=== PATIENT | female | born 1985 | race Caucasian/White ===

== ENCOUNTER 2016-09-11 00:12 | Emergency (ER) | payer OTHER ==
[~2016-09-11] VITALS: Ht 154.9 cm; Wt 73.3 kg
[2016-09-11 00:16] VITALS: BP 129/90
--- NOTE | 2016-09-11 00:25 | NUR ---
PATIENT AMBULATED TO ER BED 5.
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
--- NOTE | 2016-09-11 00:44 | NUR ---
Patient being evaluated by physician at bedside.
[2016-09-11] MEDS ORDERED: LORazepam 1 MG TAB PO ONE (00:50)
[2016-09-11 01:36] VITALS: BP 123/80
--- NOTE | 2016-09-11 01:36 | NUR ---
Patient discharged with v/s stable. Written and verbal after care instructions given and explained. Patient alert, oriented and verbalized understanding of instructions. Ambulatory with to car. All questions addressed prior to discharge. ID band removed. Patient advised to follow up with PMD OR RETURN TO ER IF CONDITION WORSENS. Opportunity to ask questions provided and answered.NO S/S OF DISTRESS NOTED ON D/C.
== END 2016-09-11 01:36 | disposition home or self-care (01) ==
LOC: MED 00:12
DX: R20.2 Paresthesia of skin (principal)
CPT/HCPCS: 99283

== ENCOUNTER 2017-01-15 21:56 | Inpatient (IN) | payer OTHER ==
[~2017-01-15] VITALS: Ht 162.6 cm; Wt 72.6 kg
[2017-01-15 22:03] VITALS: BP 132/79
--- NOTE | 2017-01-15 22:18 | NUR ---
TO ER BED 5
[2017-01-15] MEDS ORDERED: NACL 0.9% 1,000 ML IV ONE (22:20)
--- NOTE | 2017-01-15 22:30 | NUR ---
Patient being evaluated by physician at bedside.
--- NOTE | 2017-01-15 22:47 | NUR ---
31Y/F PATIENT PRESENTS TO ED WITH C/O EPIGSARIC PAIN X 1 DAY . PT STATES EPIGASTRIC PAIN WITH N/V. NO DIARRHEA, NO MEDICAL HX.; SKIN IS PINK/WARM/DRY; AAOX4 WITH EVEN AND STEADY GAIT; LUNGS CLEAR BL; HR EVEN AND REGULAR; PT DENIES ANY FEVER, CP, SOB, OR COUGH AT THIS TIME; PATIENT STATES PAIN OF 6/10 AT THIS TIME; VSS; PATIENT POSITIONED FOR COMFORT; HOB ELEVATED; BEDRAILS UP X2; BED DOWN. ER MD MADE AWARE OF PT STATUS.
[2017-01-15 22:52] LABS: APPEARANCE,URINE CLEAR (CLEAR); BILIRUBIN,URINE NEGATIVE (NEGATIVE); BLOOD, URINE NEGATIVE (NEGATIVE); COLOR,URINE YELLOW (YELLOW); LEUKOCYTE ESTERASE ,URINE NEGATIVE (NEGATIVE); NITRITE, URINE NEGATIVE (NEGATIVE); PH,URINE 6.5 (5.0-9.0); PROTEIN,URINE NEGATIVE (NEGATIVE); UGLUCOSE NEGATIVE (NEGATIVE); UROBILINOGEN,URINE 0.2 EU/dL (0.2 - 1)
[2017-01-15 22:53] LABS: HEMATOCRIT 39.3 % (36-48); HEMOGLOBIN 12.7 g/dL (12.0-16.0); MEAN CORPUSCULAR HEMOGLOBIN 25 pg (27-31); MEAN CORPUSCULAR HGB CONC 32 g/dL (33-37); MEAN CORPUSCULAR VOLUME 78 fL (80-94); PLATELET COUNT (AUTO) 317 K/uL (140-450); RED BLOOD CELL COUNT(AUTO) 5.02 MIL/uL (4.20-5.40); WHITE BLOOD COUNT (AUTO) 15.3 K/uL (4.8-10.8)
--- NOTE | 2017-01-15 23:00 | NUR ---
Patient appears to be resting comfortably in bed. Vital Signs within normal limits. Respirations even and unlabored.
[2017-01-15 23:03] LABS: ALBUMIN 3.8 g/dL (3.4-5.0); ANION GAP 15.2 (8-16); CARBON DIOXIDE 24.3 mmol/L (21-32); CREATININE 0.6 mg/dL (0.6-1.3); POTASSIUM 3.5 mmol/L (3.5-5.1); TOTAL BILIRUBIN 0.8 mg/dL (0.0-1.0); TOTAL PROTEIN, SERUM 7.8 g/dL (6.4-8.2)
[2017-01-15 23:10] LABS: BAND % (MANUAL) 5 % (0-8); LYMPHOCYTES % (MANUAL) 16 % (20-46); MONOCYTES % (MANUAL) 0 % (5-12); NEUTROPHILS % (MANUAL) 79 (43-65)
[2017-01-15 23:17] LABS: BACTERIA,URINE FEW /HPF (None Seen); RBC,URINE 0-5 (RARE) /HPF (0-5); SQUAMOUS EPITHELIAL CELL,UR 0-3 (FEW) /LPF (0-3 (FEW)); WBC,URINE 0-5 (RARE) /HPF (0-5)
[2017-01-16] VITALS (7 sets, daily range): BP systolic 97–112; BP diastolic 61–70
[2017-01-16] MEDS ORDERED: HYDROmorphone 1 MG/ML AMP IVP ONE (00:30)
[2017-01-16] MEDS ORDERED: ONDANSETRON 4 MG/2 ML VIAL IVP ONE (00:30)
[2017-01-16] MEDS ORDERED: MORPHINE SULFATE 4 MG/ML SYR IVP PRN (00:40)
[2017-01-16] MEDS ORDERED: MORPHINE SULFATE 2 MG/ML SYR IVP PRN (00:40)
[2017-01-16] MEDS ORDERED: ONDANSETRON 4 MG/2 ML VIAL IVP PRN ×2 (00:40→18:00)
--- NOTE | 2017-01-16 01:05 | NUR ---
Patient will be admitted to care of . Admited to M/S. Will go to [id number]. Belongings list completed. Report to ISELA SOLARES.
[2017-01-16] MEDS: DEXT 5% /NACL 0.9% 1,000 ML IV SCH ×2 (01:30→12:48)
--- NOTE | 2017-01-16 02:15 | NUR ---
ADMITTED 31 Y.O.F. FROM ER.PLACED ON BED ORIENTED TO ROOM.CALL SYSTEM EXPLAINED AND IN REACH.PT IS AWAKE,ALERT AND ORIENTED.RESP.IS UNLABORED IN RA.SL PATENT IN LT.AC W/#18 G W/O REDNESS OR EDEMA AT SITE.PLAN OF CARE DISCUSSED W/ PT. SHE VERBALIZED UNDERSTANDING.DENIED PAIN AT TIME OF ADMISSION.WILL CONTINUE MONITORING.
[2017-01-16] MEDS ORDERED: PIPERACILLIN/TAZOBACTAM 3.375 GM VIAL IV ONE (04:46)
[2017-01-16] MEDS ORDERED: PIPERACILLIN/TAZOBACTAM 3.375 GM in DEXTROSE 5% 50 ML IV SCH (05:00)
[2017-01-16 06:25] LABS: PARTIAL THROMBOPLASTIN TIME 25.8 secs (22-35.6); PROTHROMBIN TIME 10.1 secs (10.8-13.4)
--- NOTE | 2017-01-16 06:43 | NUR ---
SLEPT WELL.IVF OF D5,NS AT 100ML/H INFUSING WELL.NO C/O PAIN SINCE ADMISSION.SHE IS NPO.PER ER AWARE OF CONSULT. ER TALKED W/HIM.
--- NOTE | 2017-01-16 07:29 | NUR ---
REPORT GIVEN TO AM NURSE.PT'S CONDITION IS STABLE.PT REFUSED SEQUENTIAL.
--- NOTE | 2017-01-16 07:29 | NUR ---
ASSUMEDM CONTINUITY OF CARE. NO SIGNS AND SYMTPOMSO F ACUTE DISTRESS NOTED. INITIAL ASSESSMENT DONE. KEEP COMFORTABLE ON BED. EXPLAINED DIAGNOSIS, PLAN OF CARE, PAIN MANAGEMENT TEACHING, NOTHING BY MOUTH, USE OF CALL LIGHT/BED/TV/BATHROOM. VERBALIZED UNDERSTANDING. CALL LIGHT WITHIN REACH.
--- NOTE | 2017-01-16 08:00 | NUR ---
Patient's Plan of Care was discussed and reviewed with THIRD SHIFT LIEUTENANT: KRYS OG
--- NOTE | 2017-01-16 08:50 | NUR ---
DR. RÍOS CAME, SEEN PT.. AND CHECKED PT. CHART.
--- NOTE | 2017-01-16 09:02 | NUR ---
PATIENT HAS BEEN SCREENED AND CATEGORIZED MODERATE NUTRITION RISK. PATIENT WILL BE SEEN WITHIN 3-5 DAYS OF ADMISSION. 01/18/17-01/20/[address]
--- NOTE | 2017-01-16 09:05 | NUR ---
DR. HAUSER CALLED AND SAID THAT DR. RÍOS CALLED HIM REGARDING PT.. GOT T.O. FROM DR. HAUSER OF OBTAIN CONSENT FOR LAPAROSCOPIC POSSIBLE OPEN APPENDECTOMY FOR TODAY 01/16/17, AND CXR. READ BACK AND VERIFIED. INFORMED CHARGE NURSE MARIELENA ALVAREZ -ISELA.
--- NOTE | 2017-01-16 09:40 | NUR ---
RIVER RAFTING GUIDE CAME FOR PT. CXR. PT. RESTING ON BED.
[2017-01-16 09:48] LABS: ANION GAP 11.1 (8-16); CARBON DIOXIDE 26.9 mmol/L (21-32); CREATININE 0.7 mg/dL (0.6-1.3)
[2017-01-16] MEDS: PIPER/TAZO 3.375GM/D5W PREMIX 50 ML IV SCH ×2 (12:24→20:39)
[2017-01-16 15:26] LABS: BASOPHILS # (AUTO) 0.2 K/uL (0.00-0.22); BASOPHILS % (AUTO) 1.8 % (0.0-2.0); EOSINOPHILS # (AUTO) 0.1 K/uL (0-0.4); EOSINOPHILS % (AUTO) 1.4 % (0.0-4.0); HEMATOCRIT 35.4 % (36-48); HEMOGLOBIN 10.9 g/dL (12.0-16.0); LYMPHOCYTES # (AUTO) 1.9 K/uL (2.5-16.5); LYMPHOCYTES % (AUTO) 20.4 % (20.5-51.1); MEAN CORPUSCULAR HEMOGLOBIN 24 pg (27-31); MEAN CORPUSCULAR HGB CONC 31 g/dL (33-37); MEAN CORPUSCULAR VOLUME 78 fL (80-94); MONOCYTES # (AUTO) 0.4 K/uL (0.8-1.0); MONOCYTES % (AUTO) 3.9 % (1.7-9.3); NEUTROPHILS # (AUTO) 6.8 K/uL (1.8-7.7); NEUTROPHILS % (AUTO) 72.5 % (42.2-75.2); PLATELET COUNT (AUTO) 294 K/uL (140-450); RED BLOOD CELL COUNT(AUTO) 4.54 MIL/uL (4.20-5.40); RED CELL DISTRIBUTION WIDTH 14.2 % (11.6-13.7); WHITE BLOOD COUNT (AUTO) 9.4 K/uL (4.8-10.8)
--- NOTE | 2017-01-16 16:20 | NUR ---
CALLED DR. HAUSER AND VERIFIED ORDER FOR LAPAROSCOPIC POSSIBLE OPEN APPENDECTOMY. DR. HAUSER PHONE WANTED TO TALK TO STIPPLER FOR OR SCHEDULING. INFORMED CHARGE NURSE MARIELENA MIRELES.
[2017-01-16] MEDS ORDERED: ACETAMINOPHEN 325 MG TAB PO PRN (16:40)
[2017-01-16] MEDS ORDERED: PHENYLEPHRINE 10 MG/ML VIAL ONE (17:20)
[2017-01-16] MEDS ORDERED: DEXAMETHASONE 4 MG/ML VIAL ONE (17:20)
[2017-01-16] MEDS ORDERED: PROPOFOL 200 MG/20 ML VIAL IV ONE (17:20)
[2017-01-16] MEDS ORDERED: LIDOCAINE 2% 100 MG/5 ML SYR IVP ONE (17:20)
[2017-01-16] MEDS ORDERED: ONDANSETRON 4 MG/2 ML VIAL ONE (17:20)
[2017-01-16] MEDS ORDERED: ROCURONIUM 50 MG/5 ML VIAL IV ONE (17:20)
[2017-01-16] MEDS ORDERED: SUCCINYLCHOLINE CHLORIDE 200 MG/10 ML VIAL IVP ONE (17:20)
[2017-01-16] MEDS ORDERED: GLYCOPYRROLATE 0.2 MG/ML VIAL ONE (17:20)
[2017-01-16] MEDS ORDERED: DESFLURANE 240 ML BTL INH ONE (17:20)
--- NOTE | 2017-01-16 17:25 | NUR ---
DR. HAUSER CAME, SPOKE TO PT. AND DISCUSSED ABOUT PROCEDURE. FAMILY MEMBERS ON BEDSIDE.
--- NOTE | 2017-01-16 17:30 | NUR ---
WENT TO OR VIA GURNEY. IN STABLE CONDITION.
[2017-01-16] MEDS ORDERED: BUPIVACAINE-MPF 0.25% 30 ML VIAL INJ ONE (17:42)
[2017-01-16] MEDS ORDERED: MIDAZOLAM 2 MG/2 ML VIAL ONE (17:43)
[2017-01-16] MEDS ORDERED: fentaNYL 0.05 MG/ML VIAL ONE (17:44)
[2017-01-16] MEDS ORDERED: BLOOD GLUCOSE MONITORING 1 DEV DEV FS SCH (18:00)
[2017-01-16] MEDS ORDERED: HYDROmorphone 1 MG/ML AMP IVP PRN (18:00)
--- NOTE | 2017-01-16 19:12 | NUR ---
REPORT GIVEN TO KATELYN MIRELES. PT. IN OR FOR PROCEDURE.
--- NOTE | 2017-01-16 19:20 | NUR ---
RECEIVED REPORTS FROM DAY RN. PATIENT IS CURRENTLY IN THE O.R.
[2017-01-16] MEDS: HYDROmorphone PFS 2 MG/ML SYR ONE ×2 (19:34→19:44)
[2017-01-16] MEDS ORDERED: INSULIN HUMAN REGULAR 100 UNITS/ML 10 ML VIAL SUBQ SCH (19:35)
--- NOTE | 2017-01-16 20:05 | NUR ---
RECEIVED REPORTS FROM O.R NURSE. PATIENT RESTING IN BED, VITAL SIGN 97.8 107/70, 78, 93%, 17, PATIENT DENIES PAIN AT THIS TIME. NOTED SURGICAL SITES WERE TAPED, DRY AND INTACT. CALL LIGHT WITHIN REACH, SAFETY MEASURE ENSURED, WILL CONTINUE TO MONITOR.
[2017-01-16] MEDS ORDERED: NACL 0.9% 1,000 ML IV SCH (21:25)
[2017-01-16] MEDS: INSULIN LISPRO SLIDING SCALE 100 UNITS/ML VIAL SUBQ PRN (22:07)
--- NOTE | 2017-01-16 23:05 | NUR ---
PATIENT SLEEPING IN BED, NO S/S OF ACUTE DISTRESS NOTED, RESPIRATION EVEN AND UNLABORED, VITAL SIGNS TAKEN, READ 98.4, 109/65, 80, 17, 97%. DENIES PAIN AT THIS TIME. CALL LIGHT WITHIN REACH, SAFETY MEASURE ENSURED, WILL CONTINUE TO MONITOR.
[2017-01-17] VITALS: BP 112/70
--- NOTE | 2017-01-17 00:40 | NUR ---
ASSISTED PATIENT TO THE BATHROOM. PATIENT VOID X1, AND STATED," YES, I FARTED."
--- NOTE | 2017-01-17 02:58 | NUR ---
ASSISTED PATIENT TO THE RESTROOM. PATIENT VOID X1.
[2017-01-17] MEDS: PIPER/TAZO 3.375GM/D5W PREMIX 50 ML IV SCH ×2 (04:54→12:35)
--- NOTE | 2017-01-17 04:58 | NUR ---
AM ZOSYN STARTED, PATIENT TOLERATED WELL. NO S/S OF ACUTE DISTRESS NOTED, WILL CONTINUE TO MONITOR.
[2017-01-17 06:01] LABS: BASOPHILS % (AUTO) 0.4 % (0.0-2.0); EOSINOPHILS # (AUTO) 0.1 K/uL (0-0.4); EOSINOPHILS % (AUTO) 1.2 % (0.0-4.0); LYMPHOCYTES # (AUTO) 1.2 K/uL (2.5-16.5); LYMPHOCYTES % (AUTO) 11.5 % (20.5-51.1); MEAN CORPUSCULAR HEMOGLOBIN 25 pg (27-31); MEAN CORPUSCULAR HGB CONC 32 g/dL (33-37); MEAN CORPUSCULAR VOLUME 78 fL (80-94); MONOCYTES # (AUTO) 0.2 K/uL (0.8-1.0); MONOCYTES % (AUTO) 1.9 % (1.7-9.3); NEUTROPHILS # (AUTO) 8.7 K/uL (1.8-7.7); PLATELET COUNT (AUTO) 293 K/uL (140-450); RED BLOOD CELL COUNT(AUTO) 4.39 MIL/uL (4.20-5.40); WHITE BLOOD COUNT (AUTO) 10.2 K/uL (4.8-10.8)
[2017-01-17 06:38] LABS: ANION GAP 13.8 (8-16); CALCIUM 8.5 mg/dL (8.5-10.1); CARBON DIOXIDE 24.8 mmol/L (21-32); CREATININE 0.6 mg/dL (0.6-1.3); POTASSIUM 4.6 mmol/L (3.5-5.1)
[2017-01-17 06:49] LABS: MAGNESIUM 1.8 mg/dL (1.8-2.4); PHOSPHORUS 3.8 mg/dL (2.5-4.9)
[2017-01-17] MEDS: BLOOD GLUCOSE MONITORING 1 DEV DEV FS SCH ×3 (07:07→16:43)
[2017-01-17] MEDS: INSULIN LISPRO SLIDING SCALE 100 UNITS/ML VIAL SUBQ PRN ×3 (07:07→16:46)
--- NOTE | 2017-01-17 07:20 | NUR ---
ASSUMED CONTINUITY OF CARE. NO SIGNS AND SYMPTOMS OF ACUTE DISTRESS NOTICED. INITIAL ASSESSMENT DONE. KEEP COMFORTABLE ON BED. EXPLAINED DIAGNOSIS, PLAN OF CARE, PAIN MANAGEMENT TEACHING, POST-OP CARE, USE OF CALL LIGHT/BED/TV/BATHROOM. VERBALIZED UNDERSTANDING. CALL LIGHT WITHIN REACH.
--- NOTE | 2017-01-17 07:20 | NUR ---
ENDORSED PLAN OF CARE TO DAY RN. PATIENT RESTING IN BED, NO S/S ACUTE DISTRESS NOTED, RESPIRATION EVEN AND UNLABORED.
[2017-01-17 08:00] VITALS: BP 104/59
--- NOTE | 2017-01-17 08:00 | NUR ---
Patient's Plan of Care was discussed and reviewed with REHAB AID: KRYS
--- NOTE | 2017-01-17 09:00 | NUR ---
DR. RÍOS CAME, CHECKED PT. CHART, AND SEEN PT.. PER DR. RÍOS, PT. CAN BE D/C LATER AT THIS AFTERNOON. INFORMED CHARGE NURSE MARIELENA ALVAREZ -ISELA.
[2017-01-17] MEDS ORDERED: DOCU-67 PO (09:30)
[2017-01-17] MEDS ORDERED: ACET-2863 PO (09:30)
--- NOTE | 2017-01-17 10:05 | NUR ---
AMBULATES ON HALLWAY WITHOUT ASSISTANCE. TOLERATED WELL. NO C/O PAIN.
[2017-01-17 12:00] VITALS: BP 110/68
--- NOTE | 2017-01-17 12:36 | NUR ---
WENT TO BATHROOM. TOLERATED WELL. NO C/O PAIN.
--- NOTE | 2017-01-17 15:00 | NUR ---
EXPLAINED ABOUT MD D/C ORDER, D/C INSTRUCTIONS AND TEACHING, DR. HAUSER FOLLOW-UP IN 1 WEEK, POST-OP TEACHING, PAIN MANAGEMENT TEACHING, DIET, INCISION CARE, MD D/C PRESCRIPTION LIST EDUCATION. VERBALIZED UNDERSTANDING.
[2017-01-17 16:00] VITALS: BP 106/56
--- NOTE | 2017-01-17 18:10 | NUR ---
D/C VIA WHEELCHAIR WITH ASSISTANCE. FROM CLARENCE BERRIOS, ACCOMPANIED BY PT. . PT. AWAKE, ALERT, AND ORIENTED X4. SPEECH CLEAR. NO C/O PAIN. NO SOB, NOTED. IN STABLE CONDITION. INFORMED CHARGE NURSE MARIELENA MIRELES.
[2017-01-17] MEDS ORDERED: DOCUSATE SODIUM 250 MG GELCAP PO SCH (21:00)
== END 2017-01-17 18:10 | disposition home or self-care (01) | DRG 225 ==
LOC: MED 21:56 → MTU 01-16 00:41
PROVIDERS: ADMIT Hospitalist; ATTEND Hospitalist
PROC: 0DTJ4ZZ Resection of Appendix, Percutaneous Endoscopic Approach (ICD-10-PCS; principal; 2017-01-16 17:30)
DX: K35.80 Unspecified acute appendicitis (principal)
CPT/HCPCS: 36415; 71010; 80048; 80053; 81001; 81025; 82150; 82948; 83036; 83690; 83735; 84100; 84703; 85025; 85610; 85730; 87081; 96361; 96374; 96375; 99285; J0330; J1100; J1170; J1815; J2001; J2250; J2270; J2370; J2405; J2543; J2704; J3010; J3490; J7030; J7042; J7060; Q0092

== ENCOUNTER 2018-07-17 17:08 | Emergency (ER) | payer OTHER ==
[~2018-07-17] VITALS: Ht 157.5 cm; Wt 69.4 kg
[~2018-07-17 17:08] MED LIST: DOCU-299 PO; HYDR-5123 PO
[2018-07-17 17:20] VITALS: BP 93/43
--- NOTE | 2018-07-17 17:20 | NUR ---
PATIENT AMBULATED TO ER BED 5.
--- NOTE | 2018-07-17 17:33 | NUR ---
PT BIB SELF. CO SHARP LOWER RIGHT ABD PAIN X 4 DAYS. REPORTS LAST BM WAS THIS AM. DENIES IRREGULAR BM/BLEEDING/CONSTIPATION. DENIES NVD. DENIES CHEST PAIN/SOB. BOWEL SOUNDS ACTIVE ALL 4 QUADRANTS. SOFT, NON-TENDER, NON DISTENDED.
[2018-07-17] MEDS ORDERED: KETOROLAC 60 MG/2 ML VIAL IM ONE (18:30)
--- NOTE | 2018-07-17 18:30 | NUR ---
PT ON BED IN SUPINE POSITION, EYES OPEN, RESPIS E/U, DENIES CP/SOB ON FULL MONITOR. BED IN LOW POSITION. NO IDENTIFIED REQUESTS AT THIS TIME.
--- NOTE | 2018-07-17 18:39 | NUR ---
PT TAKEN TO US WITH TECH.
[2018-07-17 18:54] LABS: BILIRUBIN,URINE NEGATIVE (NEGATIVE); BLOOD, URINE NEGATIVE (NEGATIVE); COLOR,URINE YELLOW (YELLOW); LEUKOCYTE ESTERASE ,URINE NEGATIVE (NEGATIVE); NITRITE, URINE NEGATIVE (NEGATIVE); UGLUCOSE 1+ (NEGATIVE)
[2018-07-17 18:57] LABS: APPEARANCE,URINE HAZY (CLEAR)
[2018-07-17 18:58] LABS: RBC,URINE 0-5 (RARE) /HPF (0-5)
[2018-07-17 18:59] LABS: WBC,URINE 0-5 (RARE) /HPF (0-5)
--- NOTE | 2018-07-17 19:11 | NUR ---
Pt report given to MIKAELA WEISS. Transfer of care at this time.
--- NOTE | 2018-07-17 19:11 | NUR ---
ASSUMED CARE OF PT FROM ISELA ECHEVERRIA
--- NOTE | 2018-07-17 19:19 | NUR ---
PT RETURN FROM [facility]TRAS[facility]
[2018-07-17] MEDS ORDERED: IBUPROFEN 800 MG TAB PO ONE (19:40)
[2018-07-17 20:15] VITALS: BP 106/61
--- NOTE | 2018-07-17 20:15 | NUR ---
Patient discharged with v/s stable. Written and verbal after care instructions given and explained. Patient alert, oriented and verbalized understanding of instructions. Ambulatory with steady gait. All questions addressed prior to discharge. ID band removed. Patient advised to follow up with PMD. Rx of TRAMADOL, IBUPROFEN given. Patient educated on indication of medication including possible reaction and side effects. Opportunity to ask questions provided and answered.
== END 2018-07-17 20:15 | disposition home or self-care (01) ==
LOC: MED 17:08
DX: R10.31 Right lower quadrant pain (principal); Z90.89 Acquired absence of other organs
CPT/HCPCS: 76830; 81001; 81025; 93976; 96372; 99284; J1885; Q0092

== ENCOUNTER 2018-11-21 23:33 | Inpatient (IN) | payer OTHER ==
[~2018-11-21] VITALS: Ht 154.9 cm; Wt 70.3 kg
[2018-11-21 23:36] VITALS: BP 124/76
--- NOTE | 2018-11-21 23:41 | NUR ---
PT AMBULATED W/ STEADY GATE TO BED 3
--- NOTE | 2018-11-21 23:42 | NUR ---
PATIENT PRESENTS TO ED WITH RLQ ABDOMINAL PAIN THAT STARTED TODAY. PT DESCRIBES PAIN SHARP NON-RADIATING. TENDERNESS TO SITE. PT WAS SEEN AT URGENT CARE TODAY AND WAS TOLD IT COULD BE GAS BUT WAS NOT PROVIDED W/ MEDICATION. PT DENIES VOMITING BUT STATES SHE HAS BEEN HAVING MILD NAUSEA. PATIENT STATES PAIN OF 8/10 AT THIS TIME; VSS; PATIENT POSITIONED FOR COMFORT; HOB ELEVATED; BEDRAILS UP X2; BED DOWN. ER MD MADE AWARE OF PT STATUS.
[2018-11-22] MEDS ORDERED: NACL 0.9% 1,000 ML IV ONE ×2 (00:39→03:20)
[2018-11-22] MEDS ORDERED: MORPHINE SULFATE 4 MG/ML SYR IVP ONE (00:40)
[2018-11-22] MEDS ORDERED: ONDANSETRON 4 MG/2 ML VIAL IVP ONE (00:40)
--- NOTE | 2018-11-22 00:50 | NUR ---
IV STARTED AND FLUIDS ARE NOW INFUSING.
[2018-11-22 01:00] LABS: APPEARANCE,URINE SL CLOUDY (CLEAR); BILIRUBIN,URINE NEGATIVE (NEGATIVE); BLOOD, URINE NEGATIVE (NEGATIVE); COLOR,URINE YELLOW (YELLOW); LEUKOCYTE ESTERASE ,URINE NEGATIVE (NEGATIVE); NITRITE, URINE NEGATIVE (NEGATIVE); UGLUCOSE 1+ (NEGATIVE)
[2018-11-22 01:01] LABS: BASOPHILS % (AUTO) 0.4 % (0.0-2.0); EOSINOPHILS # (AUTO) 0.1 K/uL (0-0.4); EOSINOPHILS % (AUTO) 0.5 % (0.0-4.0); HEMOGLOBIN 12.5 g/dL (12.0-16.0); LYMPHOCYTES # (AUTO) 1.5 K/uL (2.5-16.5); LYMPHOCYTES % (AUTO) 13.8 % (20.5-51.1); MEAN CORPUSCULAR HEMOGLOBIN 25 pg (27-31); MEAN CORPUSCULAR HGB CONC 33 g/dL (33-37); MEAN CORPUSCULAR VOLUME 76.8 fL (80-94); MONOCYTES # (AUTO) 0.5 K/uL (0.8-1.0); MONOCYTES % (AUTO) 4.6 % (1.7-9.3); NEUTROPHILS # (AUTO) 8.8 K/uL (1.8-7.7); NEUTROPHILS % (AUTO) 80.7 % (42.2-75.2); PLATELET COUNT (AUTO) 289 K/uL (140-450); RED BLOOD CELL COUNT(AUTO) 4.95 MIL/uL (4.20-5.40); RED CELL DISTRIBUTION WIDTH 15.7 % (11.6-13.7); WHITE BLOOD COUNT (AUTO) 10.9 K/uL (4.8-10.8)
[2018-11-22 01:15] LABS: ALBUMIN 3.6 g/dL (3.4-5.0); ANION GAP 15.9 (8-16); CARBON DIOXIDE 21.8 mmol/L (21-32); CREATININE 0.6 mg/dL (0.6-1.3); POTASSIUM 3.7 mmol/L (3.5-5.1); TOTAL BILIRUBIN 0.8 mg/dL (0.0-1.0)
[2018-11-22 01:31] LABS: RBC,URINE 0-5 /HPF (0-5); WBC,URINE 0-5 /HPF (0-5)
--- NOTE | 2018-11-22 01:45 | NUR ---
PT STATES PAIN IS ALMOST GONE AND SHE FEELS MUCH BETTER NOW. VSS.
--- NOTE | 2018-11-22 02:55 | NUR ---
EDEN CHANDLER AT PT BEDSIDE.
[2018-11-22] MEDS ORDERED: PIPERACILLIN/TAZOBACTAM 3.375 GM in DEXTROSE 5% 50 ML IV ONE (03:20)
[2018-11-22] MEDS ORDERED: metroNIDAZOLE 500 MG/NS PREMIX 100 ML IV ONE (03:20)
[2018-11-22] MEDS ORDERED: PIPERACILLIN/TAZOBACTAM 3.375 GM VIAL IV ONE (03:33)
--- NOTE | 2018-11-22 03:35 | NUR ---
PT WILL BE ADMITTED, PENDING PLACEMENT FROM [employer]UR[employer].
[2018-11-22] MEDS ORDERED: KETOROLAC 30 MG/ML VIAL IVP ONE (03:55)
--- NOTE | 2018-11-22 05:04 | NUR ---
PT REPORTS PAIN TOLERABLE AT THIS TIME. 09/05.
[2018-11-22 05:30] VITALS: BP 103/60
--- NOTE | 2018-11-22 05:30 | NUR ---
RECEIVED PT FROM ER NURSE. PT CAME IN [facility] AND ABLE TO AMBULATE TO [facility] BED. NO SOB OR ANY RESPIRATORY DISTRESS NOTED. SKIN INTACT, WARM AND DRY TO TOUCH. IV SITE ON LFA, 22G, INTACT, PATENT, AND ASYMPTOMATIC. DX: ABD PAIN. DENIED PAIN AT THIS TIME. VS CHECKED, WITHIN NORMAL RANGE. ORIENT ROOM TO PT. STANDARD PRECAUTION IN PLACE. UPDATED BOARD. BED IN LOW POSITION, CALL LIGHT WITHIN REACH.
--- NOTE | 2018-11-22 05:37 | NUR ---
PT ADMITTED TO [facility] ROOM 120-A. BELONGINGS AND BELONGINGS LIST TAKEN WITH PT. REPORT GIVEN TO ISELA GUSMAN.
--- NOTE | 2018-11-22 06:39 | NUR ---
PT SLEEPING IN BED. NO ACUTE DISTRESS NOTED. BED IN LOW POSITION, CALL LIGHT WITHIN REACH. WILL CONTINUE TO MONITOR.
--- NOTE | 2018-11-22 07:23 | NUR ---
ENDORSED PT TO DAY SHIFT NURSE. PT IN STABLE CONDITION.
--- NOTE | 2018-11-22 07:24 | NUR ---
RECEIVED BEDSIDE REPORT FROM OPTICAL LABORATORY MECHANIC NURSE. PATIENT IS AWAKE, ALERT AND ORIENTEDX4. NO SIGNS OF DISTRESS ON RA. SKIN IS INTACT. PATIENT IS AMBULATORY. CONTINENT. NO COMPLAINTS AT THIS TIME, PATIENT ABLE TO MAKE NEEDS KNOWN. L FA 22G SL. CLEAN, DRY AND INTACT. BED IN LOW POSITION. CALL LIGHT WITHIN REACH. WILL CONTINUE TO MONITOR THE PATIENT
[2018-11-22] MEDS ORDERED: ONDANSETRON 4 MG/2 ML VIAL IVP PRN (07:40)
[2018-11-22] MEDS ORDERED: MORPHINE SULFATE 2 MG/ML SYR IVP PRN (07:40)
[2018-11-22 08:00] VITALS: BP 109/63
[2018-11-22] MEDS: ACETAMINOPHEN 325 MG TAB PO PRN ×2 (08:28→20:14)
[2018-11-22] MEDS: NACL 0.9% 1,000 ML IV SCH ×2 (08:29→21:05)
--- NOTE | 2018-11-22 08:35 | NUR ---
ADMINISTERED PRN MEREDITH MED AND SMITHA IVF. PATIENT TOLERATING WELL. EDUCATED ON SIDE EFFECTS. WILL CONTINUE TO MONITOR THE PATIENT. BED IN LOW POSITION. PATIENT ABLE TO MAKE NEEDS KNOWN
--- NOTE | 2018-11-22 09:21 | NUR ---
PATIENT HAS BEEN SCREENED AND CATEGORIZED MODERATE NUTRITION RISK. PATIENT WILL BE SEEN WITHIN 3-5 DAYS OF ADMISSION. 11/24/18NABE[address]
--- NOTE | 2018-11-22 09:30 | NUR ---
PATIENT HAS NO COMPLAINTS OF MEREDITH AT THIS TIME. PATIENT IS SLEEPING. WILL CONTINUE TO MONITOR THE PATIENT
--- NOTE | 2018-11-22 11:30 | NUR ---
PATIENT IS SLEEPING. NO SIGNS OF DISTRESS. WILL CONTINUE TO MONITOR THE PATIENT
[2018-11-22 12:00] VITALS: BP 117/76
[2018-11-22] MEDS: PIPER/TAZO 3.375GM/D5W PREMIX 50 ML IV SCH ×2 (13:23→20:14)
--- NOTE | 2018-11-22 13:23 | NUR ---
ADMINISTERED SMITHA ANTIBIOTICS. PATIENT TOLERATED WELL. EDUCATED ON SIDE EFFECTS. PATIENTS FAMILY JUST LEFT THE ROOM. WILL CONTINUE TO MONITOR THE PATIENT
[2018-11-22] MEDS ORDERED: HYDROcodone/APAP 5/325 MG 1 TAB TAB PO PRN (14:40)
--- NOTE | 2018-11-22 15:31 | NUR ---
PATIENT IS SLEEPING. NO SIGNS OF DISTRESS. WILL CONTINUE TO MONITOR THE PATIENT
[2018-11-22 16:00] VITALS: BP 103/61
--- NOTE | 2018-11-22 17:31 | NUR ---
PATIENT SAID IF US RESULTS ARE IN SHE IS READY TO GO HOME. US RESULTS NOT IN AT THIS TIME
--- NOTE | 2018-11-22 19:05 | NUR ---
gave bedside report to restaurant shift supervisor nurse. patient endorsed in stable condition
--- NOTE | 2018-11-22 19:06 | NUR ---
RECEIVED BEDSIDE REPORT FROM DAY SHIFT NURSE. AAOX4, NO SOB OR ANY RESPIRATORY DISTRESS NOTED ON ROOM AIR. IV SITE ON LFA, 22G, RUNNING WITH NS @80MLS/HR. INTACT, PATENT AND ASYMPTOMATIC. SKIN INTACT, WARM AND DRY TO TOUCH. PT WAITING FOR THE US RESULT. PT WILL BE DISCHARGED IF THE RESULT CAME IN NEGATIVE. BED IN LOW POSITION, CALL LIGHT WITHIN REACH. WILL CONTINUE TO MONITOR.
[2018-11-22 20:00] VITALS: BP 110/55
--- NOTE | 2018-11-22 20:14 | NUR ---
ZOSYN GIVEN, VS CHECKED. 102.0 F DEGREE OF BT NOTED. TYLENOL GIVEN DR. ORDERED. WILL CONTINUE TO MONITOR.
--- NOTE | 2018-11-22 22:05 | NUR ---
US RESULT CAME IN NEGATIVE. BT, 99.2 F NOTED. PAGED ONCALL DR. GONZALEZ IF IT IS OK TO BE DISCHARGED.
--- NOTE | 2018-11-22 22:10 | NUR ---
DR. GONZALEZ CALLED BACK. NOTIFIED PT'S STATUS INCLUDING DISCHARGE ORDER, BT 102.0F @1999 AND 99.2F @[address] GONZALEZ ORDERED NOT DISCHARGE PT AND CONTINUE TO GIVE ZOSYN AND MONITOR PT UNTIL TOMORROW.
[2018-11-23] VITALS: BP 99/53
--- NOTE | 2018-11-23 | NUR ---
VS CHECKED. WITHIN NORMAL RANGE, BT 98.3F NOTED. WILL CONTINUE TO MONITOR.
--- NOTE | 2018-11-23 02:47 | NUR ---
PT SLEEPING IN BED. NO ACUTE DISTRESS NOTED. WILL CONTINUE TO MONITOR.
[2018-11-23 04:00] VITALS: BP 105/58
[2018-11-23] MEDS: PIPER/TAZO 3.375GM/D5W PREMIX 50 ML IV SCH ×2 (04:07→13:12)
[2018-11-23] MEDS: ACETAMINOPHEN 325 MG TAB PO PRN (04:07)
--- NOTE | 2018-11-23 04:07 | NUR ---
VS CHECKED, BT 101.4 NOTED. GIVEN TYLENOL DRMeche ORDERED AND APPLIED 2 OF ICE PACK. GIVEN ZOSYN DR. ORDERED. WILL CONTINUE TO MONITOR.
--- NOTE | 2018-11-23 05:18 | NUR ---
BT CHECKED. 98.8F NOTED.
--- NOTE | 2018-11-23 07:15 | NUR ---
ENDORSED PT TO DAY SHIFT NURSE. PT IN STABLE CONDITION.
--- NOTE | 2018-11-23 07:18 | NUR ---
RECEIVED BEDSIDE REPORT FROM STEM SIZER NURSE. PT IS AAOX4, NO SOB OR ANY RESPIRATORY DISTRESS NOTED ON ROOM AIR. IV SITE ON LFA, 22G, RUNNING NS @ 80MLS/HR, INTACT, PATENT AND ASYMPTOMATIC. SKIN IS INTACT, WARM AND DRY TO TOUCH. BED IN LOW POSITION, CALL LIGHT WITHIN REACH. WILL MONITOR PT FREQUENTLY.
[2018-11-23 08:00] VITALS: BP 93/54
[2018-11-23] MEDS: NACL 0.9% 1,000 ML IV SCH (08:40)
--- NOTE | 2018-11-23 09:20 | NUR ---
PT RESTING IN BED. NO COMPLAINTS OF PAIN OR DISTRESS AT THIS TIME. WILL CONTINUE TO ROUND FREQUENTLY ON PT. BED IN LOW POSITION, CALL LIGHT WITHIN REACH.
--- NOTE | 2018-11-23 11:34 | NUR ---
PT SLEEPING IN BED. NO SIGNS OF PAIN OR DISTRESS AT THIS TIME. WILL CONTINUE TO ROUND FREQUENTLY ON PT.
[2018-11-23 12:00] VITALS: BP 95/58
--- NOTE | 2018-11-23 13:17 | NUR ---
PT RESTING IN BED. FAMILY AT BEDSIDE. NO FEVER AT THIS TIME. WILL CONTINUE TO MONITOR PT FREQUENTLY.
[2018-11-23] MEDS ORDERED: SIMETHICONE 80 MG TAB.CHEW PO PRN (13:35)
--- NOTE | 2018-11-23 15:47 | NUR ---
PT RESTING IN BED WITH AT BEDSIDE. ALL NEEDS CURRENTLY MET. PT WILL HAVE SHOWER.
[2018-11-23 16:00] VITALS: BP 118/74
--- NOTE | 2018-11-23 18:25 | NUR ---
PT DISCHARGED HOME FOR SELF CARE. ALL DISCHARGE TEACHING WAS EXPLAINED TO PT. EXPLAINED RX TO PT AND IMPORTANCE OF FINISHING ALL ABX. PT VERBALIZED UNDERSTANDING OF TEACHING. ALL DISCHARGE PAPERWORK WAS SIGNED BY PT. IV WAS REMOVED WITH TIP INTACT. WRISTBANDS REMOVED AND PLACED IN SHRED BIN. ALL PERSONAL BELONGINGS TAKEN WITH PT. PT LEFT IN STABLE CONDITION ACCOMPANIED BY .
== END 2018-11-23 18:25 | disposition home or self-care (01) | DRG 532 ==
LOC: MED 23:33 → MTU 11-22 05:06
PROVIDERS: ADMIT Internal Medicine Pulmonary Disease; ATTEND Internal Medicine Pulmonary Disease
DX: N83.209 Unspecified ovarian cyst, unspecified side (principal); K52.9 Noninfective gastroenteritis and colitis, unspecified; Z90.49 Acquired absence of other specified parts of digestive tract
CPT/HCPCS: 36415; 76856; 80053; 81001; 81025; 83605; 83690; 85025; 87040; 87081; 87086; 96361; 96365; 96366; 96367; 96375; 99285; J1885; J2270; J2405; J2543; J3490; J7030; Q0092

== ENCOUNTER 2019-08-04 20:47 | Emergency (ER) | payer OTHER ==
[~2019-08-04] VITALS: Ht 154.9 cm; Wt 69.9 kg
[2019-08-04 21:03] VITALS: BP 113/73
--- NOTE | 2019-08-04 21:13 | NUR ---
34 Y/O FEMALE PLACED IN BED 1 C/O BILATERAL EAR PAIN FOR 4 DAYS. HX OF HEAD COLD.
[2019-08-04 21:33] VITALS: BP 113/73
--- NOTE | 2019-08-04 21:33 | NUR ---
PT SEEN AND TREATED BY DOLLY CHIRINOS
--- NOTE | 2019-08-04 21:34 | NUR ---
Patient discharged with v/s stable. Written and verbal after care instructions given and explained. Patient alert, oriented and verbalized understanding of instructions. Ambulatory with steady gait. All questions addressed prior to discharge. ID band removed. Patient advised to follow up with PMD. Rx of MOTRIN, PROMETHAZINE given. Patient educated on indication of medication including possible reaction and side effects. Opportunity to ask questions provided and answered.
== END 2019-08-04 21:34 | disposition home or self-care (01) ==
LOC: MED 20:47
DX: J06.9 Acute upper respiratory infection, unspecified (principal); H92.02 Otalgia, left ear; E11.9 Type 2 diabetes mellitus without complications
CPT/HCPCS: 99283

== ENCOUNTER 2020-11-17 17:38 | Emergency (ER) | payer OTHER ==
[~2020-11-17] VITALS: Ht 154.9 cm; Wt 65.1 kg
[2020-11-17 17:43] VITALS: BP 123/89
--- NOTE | 2020-11-17 17:49 | NUR ---
MACRINA. HANDED ON URINE CUP.
--- NOTE | 2020-11-17 17:53 | NUR ---
PATIENT AMBULATED TO ER BED 5
--- NOTE | 2020-11-17 18:06 | NUR ---
35 YO F BIB SELF FROM HOME, PATIENT PRESENTS TO ED WITH RLQ ABD PAIN/PELVIC PAIN SINCE LAST NIGHT. PT STATES SHE HAS BEEN HAVING DYSURIA AND URINARY HESITENCY. DENIES N/V/D; SKIN IS PINK/WARM/DRY; AAOX4 WITH EVEN AND STEADY GAIT; LUNGS CLEAR BL; HR EVEN AND REGULAR; PT DENIES ANY FEVER, CP, SOB, OR COUGH AT THIS TIME; PATIENT STATES PAIN OF 8/10 AT THIS TIME; VSS; PATIENT POSITIONED FOR COMFORT; HOB ELEVATED; BEDRAILS UP X2; BED DOWN. ER MD MADE AWARE OF PT STATUS. PMH: DENIES NKA
[2020-11-17] MEDS ORDERED: ONDANSETRON 4 MG/2 ML VIAL IVP ONE (18:15)
[2020-11-17] MEDS ORDERED: MORPHINE SULFATE 4 MG/ML SYR IVP ONE (18:15)
[2020-11-17 18:37] LABS: BASOPHILS # (AUTO) 0.1 K/uL (0.00-0.22); BASOPHILS % (AUTO) 0.7 % (0.0-2.0); EOSINOPHILS # (AUTO) 0.1 K/uL (0-0.4); HEMATOCRIT 38.2 % (36-48); HEMOGLOBIN 12.3 g/dL (12.0-16.0); LYMPHOCYTES # (AUTO) 2.1 K/uL (2.5-16.5); LYMPHOCYTES % (AUTO) 24.9 % (20.5-51.1); MEAN CORPUSCULAR HEMOGLOBIN 25 pg (27-31); MEAN CORPUSCULAR HGB CONC 32 g/dL (33-37); MEAN CORPUSCULAR VOLUME 77.9 fL (80-94); MONOCYTES # (AUTO) 0.4 K/uL (0.8-1.0); MONOCYTES % (AUTO) 4.5 % (1.7-9.3); NEUTROPHILS # (AUTO) 5.7 K/uL (1.8-7.7); NEUTROPHILS % (AUTO) 68.9 % (42.2-75.2); PLATELET COUNT (AUTO) 307 K/uL (140-450); RED CELL DISTRIBUTION WIDTH 15.3 % (11.6-13.7); WHITE BLOOD COUNT (AUTO) 8.3 K/uL (4.8-10.8)
[2020-11-17 18:49] LABS: ALBUMIN 3.6 g/dL (3.4-5.0); ANION GAP 17.1 (8-16); CARBON DIOXIDE 24.7 mmol/L (21-32); CREATININE 0.7 mg/dL (0.6-1.3); POTASSIUM 3.8 mmol/L (3.5-5.1); TOTAL BILIRUBIN 0.5 mg/dL (0.0-1.0)
--- NOTE | 2020-11-17 19:09 | NUR ---
REPORT GIVEN TO SHWETA WEISS. TRANSFER OF CARE AT THIS TIME.
--- NOTE | 2020-11-17 19:10 | NUR ---
RECEIVED REPORT FROM BRADY WEISS FOR CONTINUITY OF CARE
--- NOTE | 2020-11-17 20:23 | NUR ---
PT RETURN FROM CT
--- NOTE | 2020-11-17 21:33 | NUR ---
Dr. Roque examining patient.
[2020-11-17 22:25] VITALS: BP 123/70
--- NOTE | 2020-11-17 22:25 | NUR ---
Patient discharged with v/s stable. Written and verbal after care instructions given and explained. Patient verbalized understanding. Ambulatory with steady gait. All questions addressed prior to discharge. IV ACCESS AND ID BAND REMOVED. Advised to follow up with PMD.
[2020-11-17 22:50] LABS: APPEARANCE,URINE CLEAR (CLEAR); BILIRUBIN,URINE NEGATIVE (NEGATIVE); BLOOD, URINE TRACE-I (NEGATIVE); COLOR,URINE YELLOW (YELLOW); LEUKOCYTE ESTERASE ,URINE NEGATIVE (NEGATIVE); NITRITE, URINE NEGATIVE (NEGATIVE); UGLUCOSE 2+ (NEGATIVE)
[2020-11-17 22:56] LABS: RBC,URINE 0-5 /HPF (0-5); WBC,URINE 0-5 /HPF (0-5)
== END 2020-11-17 22:25 | disposition home or self-care (01) ==
LOC: MED 17:38
DX: R10.31 Right lower quadrant pain (principal); R30.0 Dysuria; Z90.49 Acquired absence of other specified parts of digestive tract; Z98.890 Other specified postprocedural states
CPT/HCPCS: 36415; 74177; 80053; 81001; 83690; 84703; 85025; 87086; 96374; 96375; 99285; J2270; J2405; Q9967